=== PATIENT | female | born 1985 ===

== ENCOUNTER 2024-12-05 05:25 | Inpatient (IN) | payer OTHER ==
[2024-11-30 10:51] LABS: HEMOGLOBIN 12.9 g/dL (12.0-15.00); MEAN CELL VOLUME 80.9 fL (80.00-100.00); MEAN CORPUSCULAR HEMOGLOBIN 26.1 pg (27.00-32.0); MEAN CORPUSCULAR HGB CONC 32.2 g/dl (32.0-36.0); PLATELET COUNT 370 K/uL (150-450); RED BLOOD COUNT 4.94 M/uL (4.00-6.00); RED CELL DISTRIBUTION WIDTH 14.6 % (11.5-14.5)
[2024-11-30 10:52] VITALS: BP 129/81
[2024-11-30 11:16] LABS: URINE APPEARANCE Clear; URINE BILIRRUBIN Negative (NEGATIVE); URINE BLOOD Small; URINE COLOR Yellow; URINE GLUCOSE Negative (NEGATIVE); URINE KETONE Negative (NEGATIVE); URINE LEUKOCYTE Small; URINE NITRATE Negative; URINE PROTEIN Negative (NEGATIVE); URINE UROBILINOGEN 0.2 E.U./dl
[2024-11-30 11:21] LABS: INR 0.95; PARTIAL THROMBOPLASTIN TIME 33.7 SECONDS (22.0-34.0); PROTHROMBIN TIME 10.4 SECONDS (9.0-11.5); URINE BACTERIA 2123.3 uL (0.0-1933); URINE CAST 0.14 uL (0.0-1.40); URINE EPITHELIAL CELLS 33.8 uL (0.0-38.8); URINE WBC 43.5 uL (0.0-23.2)
[2024-11-30 11:30] LABS: ALBUMIN 3.4 gm/dL (3.4-5.0); BILIRUBIN TOTAL 0.28 mg/dL (0.3-1.2); CALCIUM 9.1 mg/dL (8.5-10.1); CREATININE SERUM 0.64 mg/dL (0.55-1.02); GFR 104.41; GLOBULINA 3.6 G/DL (2.4-3.5); POTASSIUM 4.67 mEq/L (3.5-5.1)
[~2024-12-05] VITALS: Ht 162.6 cm; Wt 115.2 kg
[2024-12-05] MEDS ORDERED: METHYLENE BLUE 50MG/10ML AMP IV ONE (07:15)
[2024-12-05] MEDS ORDERED: CEFAZOLIN SODIUM 1,000 MG VIAL ONE (07:17)
[2024-12-05] MEDS ORDERED: POVIDONE-IODINE 118 ML BOTT TOP ONE (07:43)
[2024-12-05] MEDS ORDERED: SUGAMMADEX SODIUM 200 MG/2 ML VIAL IV ONE (08:59)
[2024-12-05] MEDS ORDERED: MORPHINE SULFATE 4 MG/ML VIAL IV ONE (09:30)
[2024-12-05] MEDS ORDERED: RINGERS SOLUTION,LACTATED 1,000 ML IV SCH (11:15)
[2024-12-05 11:48] VITALS: BP 145/83
[2024-12-05] MEDS ORDERED: MORPHINE SULFATE 2 MG/ML CARTRIDGE IV SCH (13:00)
[2024-12-05 16:00] VITALS: BP 116/65
[2024-12-05] MEDS ORDERED: CEFAZOLIN SODIUM 1,000 MG VIAL IV SCH (17:00)
[2024-12-06 00:13] VITALS: BP 101/67
[2024-12-06 05:00] VITALS: BP 121/75
[2024-12-06 08:11] VITALS: BP 123/71
[2024-12-06] MEDS ORDERED: OxyCODONE HCL 5 MG TABLET (ROXICODONE) PO SCH (09:00)
[2024-12-06] MEDS ORDERED: DOCUSATE SODIUM 100MG CAP PO SCH (09:00)
[2024-12-06] MEDS ORDERED: ACETAMINOPHEN 325 MG TABLET PO SCH (09:00)
[2024-12-06 16:52] VITALS: BP 117/79
[2024-12-07] VITALS: BP 109/72
[2024-12-07 08:51] VITALS: BP 126/80
== END 2024-12-07 09:31 | disposition home or self-care (01) | DRG 743 ==
LOC: CIR.AMB 05:25 → O/R 10:14 → OB/GYN 10:45
PROVIDERS: ADMIT Obstetrics & Gynecology; ATTEND Obstetrics & Gynecology
PROC: 0UB20ZZ Excision of Bilateral Ovaries, Open Approach (ICD-10-PCS; principal; 2024-12-05 09:30)
DX: D27.1 Benign neoplasm of left ovary (principal)